=== PATIENT | female | born 1990 | race Two or more races ===

== ENCOUNTER 2021-09-24 08:13 | Observation (INO) | payer OTHER ==
[~2021-09-24] VITALS: Ht 165.1 cm; Wt 61.4 kg
[2021-09-24 09:13] LABS: BASO % 0.2 % (0.0-1.0); EOS # 0.1 10^3/uL (0.0-0.5); EOS % 1.1 % (0.0-3.0); HEMATOCRIT 40.5 % (36.0-47.0); HEMOGLOBIN 13.7 g/dl (12.0-15.5); LYMPH # 1.9 10^3/uL (1.5-5.0); MEAN CORPUSCULAR HEMOGLOBIN 29.1 pg (27.0-33.0); MEAN CORPUSCULAR HGB CONC 33.8 g/dl (32.0-36.5); MEAN CORPUSCULAR VOLUME 86.2 fl (80.0-96.0); MONO # 0.6 10^3/uL (0.0-0.8); MONO % 5.6 % (2.0-8.0); NEUTROPHILS % 74.7 % (36.0-66.0); PLATELET COUNT, AUTOMATED 252 10^3/uL (150-450); WHITE BLOOD COUNT 10.7 10^3/uL (4.0-10.0)
[2021-09-24 09:36] LABS: ALBUMIN 2.8 GM/DL (3.2-5.2); ALT/SGPT 134 U/L (12-78); BILIRUBIN,DIRECT 0.1 MG/DL (0.0-0.2); BILIRUBIN,TOTAL 0.3 MG/DL (0.2-1.0); BLOOD UREA NITROGEN 14 MG/DL (7-18); CARBON DIOXIDE LEVEL 26 MEQ/L (21-32); CHLORIDE LEVEL 105 MEQ/L (98-107); CREATININE FOR GFR 0.77 MG/DL (0.55-1.30); GLOMERULAR FILTRATION RATE > 60.0 (>60); GLUCOSE, FASTING 113 MG/DL (70-100); LIPASE 78 U/L (73-393); POTASSIUM SERUM 4.2 MEQ/L (3.5-5.1); SODIUM LEVEL 140 MEQ/L (136-145); TOTAL PROTEIN 6.6 GM/DL (6.4-8.2)
[2021-09-24 09:37] LABS: HCG, SERUM QUALITATIVE NEGATIVE (NEGATIVE)
[2021-09-24] MEDS ORDERED: KETOROLAC 30 MG/ML 1ML VIAL IM ONE (10:10)
[2021-09-24] MEDS ORDERED: ONDANSETRON 4MG/2ML VIAL IV ONE (10:15)
[2021-09-24] MEDS ORDERED: NS 1,000 ML IV ONE (10:15)
[2021-09-24] MEDS ORDERED: KETOROLAC 30 MG/ML 1ML VIAL IV ONE (10:15)
[2021-09-24] MEDS ORDERED: METOCLOPRAMIDE INJ 10MG/2ML VIAL (J2765 PER 1) IV ONE (11:00)
[2021-09-24] MEDS ORDERED: ISOVUE-370 76% 100ML VIAL As Ordered ONE (11:14)
[2021-09-24] MEDS ORDERED: MORPHINE 2 MG/ML 1ML VIAL IV ONE (12:35)
[2021-09-24] MEDS ORDERED: CABE0.5T PO (14:01)
[2021-09-24] MEDS ORDERED: ESTR2TAB3 PO (14:20)
[2021-09-24] MEDS ORDERED: ENDO100S PV (14:20)
[2021-09-24] MEDS ORDERED: PROG50IN5 SC (14:20)
[2021-09-24] MEDS ORDERED: MORPHINE 2 MG/ML 1ML VIAL IV PRN (14:35)
[2021-09-24] MEDS ORDERED: CEPH500C PO (14:37)
[2021-09-24 15:35] LABS: HEMATOCRIT 37.9 % (36.0-47.0); HEMOGLOBIN 12.7 g/dl (12.0-15.5)
[2021-09-24] MEDS ORDERED: ACET1TAB55 PO (15:50)
[2021-09-24] MEDS ORDERED: HOME MED LIST COMPLETE! XX SCH (15:50)
[2021-09-24 16:00] VITALS: BP 114/84
[2021-09-24] MEDS ORDERED: ONDANSETRON 4MG/2ML VIAL IV PRN (16:10)
[2021-09-24] MEDS ORDERED: ACETAMINOPHEN TAB 650MG DOSE (2X325MG) PO PRN (17:00)
[2021-09-24 18:00] VITALS: BP 132/86
[2021-09-24] MEDS: MIRALAX *UNIT DOSE* 17GM PACKET PO SCH (18:20)
[2021-09-24] MEDS: SIMETHICONE 80MG CHEW TAB PO PRN (18:29)
[2021-09-24] MEDS: SENOKOT S TAB PO SCH ×2 (20:03→20:17)
[2021-09-24] MEDS: oxyCODONE 5MG TAB PO PRN (21:56)
[2021-09-24 22:00] VITALS: BP 100/64
[2021-09-25 02:00] VITALS: BP 106/68
[2021-09-25] MEDS: SIMETHICONE 80MG CHEW TAB PO PRN ×3 (02:48→14:02)
[2021-09-25 06:00] VITALS: BP 113/60
[2021-09-25] MEDS: oxyCODONE 5MG TAB PO PRN ×2 (06:21→14:00)
[2021-09-25] MEDS: SENOKOT S TAB PO SCH (08:01)
[2021-09-25] MEDS: ENOXAPARIN 40MG/0.4ML SYRINGE (J1650 PER 10MG) SC SCH ×2 (08:01→09:15)
[2021-09-25] MEDS: MIRALAX *UNIT DOSE* 17GM PACKET PO SCH (08:01)
[2021-09-25 08:37] LABS: HEMATOCRIT 36.9 % (36.0-47.0); HEMOGLOBIN 12.7 g/dl (12.0-15.5); MEAN CORPUSCULAR HEMOGLOBIN 29.7 pg (27.0-33.0); MEAN CORPUSCULAR HGB CONC 34.4 g/dl (32.0-36.5); MEAN CORPUSCULAR VOLUME 86.2 fl (80.0-96.0); PLATELET COUNT, AUTOMATED 231 10^3/uL (150-450); RED BLOOD COUNT 4.28 10^6/uL (4.00-5.40); WHITE BLOOD COUNT 10.8 10^3/uL (4.0-10.0)
[2021-09-25] MEDS ORDERED: CABERGOLINE 0.5 MG PO SCH (09:00)
[2021-09-25] MEDS ORDERED: MIRALAX *UNIT DOSE* 17GM PACKET PO SCH (09:00)
[2021-09-25 09:15] LABS: ALBUMIN 2.3 GM/DL (3.2-5.2); ALT/SGPT 80 U/L (12-78); BILIRUBIN,TOTAL 0.4 MG/DL (0.2-1.0); BLOOD UREA NITROGEN 11 MG/DL (7-18); CARBON DIOXIDE LEVEL 24 MEQ/L (21-32); CHLORIDE LEVEL 109 MEQ/L (98-107); CREATININE FOR GFR 0.57 MG/DL (0.55-1.30); GLOMERULAR FILTRATION RATE > 60.0 (>60); GLUCOSE, FASTING 90 MG/DL (70-100); POTASSIUM SERUM 4.1 MEQ/L (3.5-5.1); SODIUM LEVEL 141 MEQ/L (136-145); TOTAL PROTEIN 5.4 GM/DL (6.4-8.2)
[2021-09-25 10:00] VITALS: BP 109/72
[2021-09-25] MEDS ORDERED: OXYC-517 PO (11:57)
[2021-09-25] MEDS ORDERED: MIRA1POW3 PO (11:57)
[2021-09-25] MEDS ORDERED: SIME80TA16 PO (11:57)
[2021-09-25 14:00] VITALS: BP 112/70
[2021-09-26 10:45] LABS: HEPATITIS B CORE ANTIBODY IGM NEGATIVE (NEGATIVE); HEPATITIS B SURFACE ANTIGEN NEGATIVE (NEGATIVE); HEPATITIS C VIRUS ABY INDEX 0.1 INDEX (<0.8)
[2021-09-26] MEDS ORDERED: OXYC-517 PO (15:05)
== END 2021-09-25 15:05 | disposition home or self-care (01) ==
LOC: M ED 08:13 → M ED INP 14:10 → ENRESERV 14:57 → UNDODISOB 15:55 → M MS5PR 15:55
PROVIDERS: ADMIT Internal Medicine; ATTEND Internal Medicine
DX: N98.1 Hyperstimulation of ovaries (principal); E28.39 Other primary ovarian failure; E28.2 Polycystic ovarian syndrome; R10.9 Unspecified abdominal pain; R11.2 Nausea with vomiting, unspecified; K59.00 Constipation, unspecified; R18.8 Other ascites; J90 Pleural effusion, not elsewhere classified; R74.01 Elevation of levels of liver transaminase levels; Z79.899 Other long term (current) drug therapy; F17.210 Nicotine dependence, cigarettes, uncomplicated
CPT/HCPCS: 36415; 71046; 74177; 76705; 76856; 80048; 80053; 80076; 81001; 83605; 83690; 84703; 85014; 85018; 85025; 85027; 86705; 86709; 86803; 87340; 87426; 93976; 96361; 96372; 96374; 96375; 96376; 99284; J1650; J1885; J2270; J2405; J2765; Q9967

== ENCOUNTER 2021-09-28 06:26 | Emergency (ER) | payer OTHER ==
[~2021-09-28] VITALS: Ht 165.1 cm; Wt 61.4 kg
[~2021-09-28 06:26] MED LIST: ACET1TAB55 PO; CABE0.5T PO; CEPH500C PO; ENDO100S PV; ESTR2TAB3 PO; MIRA1POW3 PO; OXYC-517 PO; PROG50IN5 SC; SIME80TA16 PO
[2021-09-28] MEDS ORDERED: CEPH500C (06:34)
[2021-09-28] MEDS ORDERED: MORPHINE 2 MG/ML 1ML VIAL IV ONE (07:30)
[2021-09-28] MEDS ORDERED: NS 1,000 ML IV ONE (07:30)
[2021-09-28] MEDS ORDERED: KETOROLAC TROMETHAMINE 10 MG TAB PO ONE (07:40)
[2021-09-28 08:04] LABS: BASO % 0.2 % (0.0-1.0); EOS # 0.1 10^3/uL (0.0-0.5); EOS % 0.9 % (0.0-3.0); HEMATOCRIT 34.9 % (36.0-47.0); HEMOGLOBIN 11.8 g/dl (12.0-15.5); LYMPH # 1.7 10^3/uL (1.5-5.0); LYMPH % 13.5 % (24.0-44.0); MEAN CORPUSCULAR HEMOGLOBIN 29.4 pg (27.0-33.0); MEAN CORPUSCULAR HGB CONC 33.8 g/dl (32.0-36.5); MONO # 0.6 10^3/uL (0.0-0.8); MONO % 5.2 % (2.0-8.0); NEUTROPHILS # 9.9 10^3/uL (1.5-8.5); NEUTROPHILS % 79.7 % (36.0-66.0); PLATELET COUNT, AUTOMATED 268 10^3/uL (150-450); RED BLOOD COUNT 4.01 10^6/uL (4.00-5.40); WHITE BLOOD COUNT 12.4 10^3/uL (4.0-10.0)
[2021-09-28 08:48] LABS: ALBUMIN 2.7 GM/DL (3.2-5.2); ALT/SGPT 81 U/L (12-78); BILIRUBIN,DIRECT < 0.1 MG/DL (0.0-0.2); BILIRUBIN,TOTAL 0.3 MG/DL (0.2-1.0); BLOOD UREA NITROGEN 12 MG/DL (7-18); CALCIUM LEVEL 9.2 MG/DL (8.5-10.1); CARBON DIOXIDE LEVEL 24 MEQ/L (21-32); CHLORIDE LEVEL 110 MEQ/L (98-107); CREATININE FOR GFR 0.66 MG/DL (0.55-1.30); GLOMERULAR FILTRATION RATE > 60.0 (>60); GLUCOSE, FASTING 89 MG/DL (70-100); HCG, SERUM QUANTITATIVE < 1.0 MIU/ML; LIPASE 86 U/L (73-393); POTASSIUM SERUM 3.9 MEQ/L (3.5-5.1); SODIUM LEVEL 140 MEQ/L (136-145); TOTAL PROTEIN 6.7 GM/DL (6.4-8.2)
[2021-09-28 11:30] VITALS: BP 122/68
== END 2021-09-28 11:40 | disposition home or self-care (01) ==
LOC: M ED 06:26
DX: N98.1 Hyperstimulation of ovaries (principal); R06.02 Shortness of breath; J90 Pleural effusion, not elsewhere classified; E28.2 Polycystic ovarian syndrome; Z79.899 Other long term (current) drug therapy

== ENCOUNTER → 2021-10-04 | Outpatient (CLI) | payer OTHER ==
[~2021-10-04] MED LIST changes: +CEPH500C
[2021-10-04 18:43] LABS: ESTRADIOL 76.9 PG/ML; FOLLICLE STIMULATING HORMONE 1.2 mIU/mL; LUTEINIZING HORMONE 3.2 mIU/mL; PROGESTERONE 2.56 NG/ML
== END ==
LOC: M PLALAB 15:21
PROVIDERS: ATTEND Specialist
DX: Z12.4 Encounter for screening for malignant neoplasm of cervix (principal); R87.612 Low grade squamous intraepithelial lesion on cytologic smear of cervix (LGSIL); N92.6 Irregular menstruation, unspecified; N39.0 Urinary tract infection, site not specified
CPT/HCPCS: 36415; 82670; 83001; 83002; 84144; 87086; 87624; G0123; G0463

== ENCOUNTER → 2021-12-07 | Outpatient (CLI) | payer OTHER ==
[2021-12-07 15:31] LABS: HEMATOCRIT 42.3 % (36.0-47.0); MEAN CORPUSCULAR HEMOGLOBIN 28.7 pg (27.0-33.0); MEAN CORPUSCULAR HGB CONC 33.1 g/dl (32.0-36.5); MEAN CORPUSCULAR VOLUME 86.9 fl (80.0-96.0); PLATELET COUNT, AUTOMATED 282 10^3/uL (150-450); RED BLOOD COUNT 4.87 10^6/uL (4.00-5.40); WHITE BLOOD COUNT 10.3 10^3/uL (4.0-10.0)
[2021-12-07 16:38] LABS: HEPATITIS C VIRUS ABY INDEX < 0.0 INDEX (<0.8); HIV 1&2 SCREEN CENTAUR NEGATIVE (NEGATIVE)
[2021-12-07 17:04] LABS: GC DNA AMPLIFICATION NEGATIVE (NEGATIVE)
== END ==
LOC: M PLALAB 14:09
PROVIDERS: ATTEND Specialist
DX: Z34.01 Encounter for supervision of normal first pregnancy, first trimester (principal); Z3A.00 Weeks of gestation of pregnancy not specified

== ENCOUNTER → 2022-01-04 | Outpatient (CLI) | payer OTHER ==
[2022-01-04 16:38] LABS: ALBUMIN 2.9 GM/DL (3.2-5.2); ALT/SGPT 30 U/L (12-78); BILIRUBIN,TOTAL 0.2 MG/DL (0.2-1.0); BLOOD UREA NITROGEN 11 MG/DL (7-18); CALCIUM LEVEL 8.7 MG/DL (8.5-10.1); CARBON DIOXIDE LEVEL 26 MEQ/L (21-32); CHLORIDE LEVEL 105 MEQ/L (98-107); CREATININE FOR GFR 0.51 MG/DL (0.55-1.30); FREE T4 0.83 NG/DL (0.76-1.46); GLOMERULAR FILTRATION RATE > 60.0 (>60); GLUCOSE, FASTING 99 MG/DL (70-100); SODIUM LEVEL 135 MEQ/L (136-145); THYROID STIMULATING HORMONE 0.441 uIU/ML (0.358-3.740); TOTAL PROTEIN 6.6 GM/DL (6.4-8.2)
== END ==
LOC: M PLALAB 14:05
PROVIDERS: ATTEND Specialist
DX: Z34.02 Encounter for supervision of normal first pregnancy, second trimester (principal)

== ENCOUNTER → 2022-01-25 | Outpatient (REF) | payer OTHER | LOC: M LAB REF 16:23 | PROVIDERS: ATTEND Physician Assistant | DX: B34.9 Viral infection, unspecified (principal) ==